=== PATIENT | male | born 1970 | race American Indian/Alaskan Native ===

== ENCOUNTER 2018-08-13 13:30 | Emergency (ER) | payer SELFPAY ==
[2018-08-13 13:35] VITALS: BP 168/101
== END 2018-08-13 16:00 | disposition left against medical advice (07) ==
LOC: ED 13:30
DX: H57.11 Ocular pain, right eye (principal); Z53.21 Procedure and treatment not carried out due to patient leaving prior to being seen by health care provider

== ENCOUNTER 2019-02-02 18:42 | Emergency (ER) | payer OTHER ==
[2019-02-02] MEDS ORDERED: CATAPRES PO ONE (19:25)
[2019-02-02] MEDS ORDERED: CATAPRES ONE (19:26)
[2019-02-02] MEDS ORDERED: BENADRYL IV ONE (20:30)
[2019-02-02] MEDS ORDERED: TORADOL IV ONE (20:30)
[2019-02-02] MEDS ORDERED: REGLAN IV ONE (20:30)
[2019-02-02] MEDS ORDERED: MAGNESIUM SULFATE 2GM/50ML 2 GM/50 ML BAG IV ONE (20:30)
[2019-02-02] MEDS ORDERED: SOLU-Medrol IV ONE (20:31)
--- NOTE | 2019-02-02 20:32 | Emergency Department Report ---
ED General Adult HPI - General Chief complaint: Headache Stated complaint: HEADACHE Time Seen by Provider: 02/02/19 20:11 Source: patient, RN notes reviewed Mode of arrival: Ambulatory Limitations: No Limitations - History of Present Illness Initial comments: This is a 48-year-old gentleman. The patient is not known to this provider previously. He does not have chronic medical conditions that he is aware of. He does not believe his family has any significant past medical history. The patient presents to the emergency room today with a complaint of nontraumatic midline and parietal scalp pain. This pain started yesterday. It is not sudden or thunderclap in nature. It is not maximal intensity at onset. It has been throbbing and waxing and waning for the past day and a half. There is some improvement with [id number] medications. The patient denies fever, neck pain, sore throat, blurry vision, change in vision, viral syndrome, he is not sure if he's ever had chickenpox, and denies neck pain, chest pain, abdominal pain, shortness of breath, extremity weakness, numbness. He denies tinnitus, and he denies vertigo. -: Gradual Location: head Radiation: non-radiation Severity scale (0 -10): 9 Quality: burning, aching Consistency: intermittent Improves with: rest, other (patient reports pain decreases when he turns his head to the opposite side, and avoids placing pressure on the scalp) Worsens with: other (palpation of the scalp and turning his head onto the right side increased pain) - Related Data Previous Rx's Medication Instructions Recorded Last Taken Type Amoxicillin/K Clav Tab [Augmentin 1 tab PO BID #14 tablet 10/16/14 Unknown Rx 875MG] Acetaminophen [Tylenol Arthritis] 650 mg PO Q6HR PRN #30 tablet.er 02/02/19 Unknown Rx Ibuprofen [Motrin] 600 mg PO Q8H PRN #30 tablet 02/02/19 Unknown Rx Allergies Allergy/AdvReac Type Severity Reaction Status Date / Time No Known Allergies Allergy Verified 02/02/19 18:43 ED Review of Systems ROS: Stated complaint: HEADACHE Other details as noted in HPI Constitutional: denies: malaise Eyes: denies: eye discharge ENT: denies: throat pain, dental pain, hearing loss, epistaxis, congestion Respiratory: denies: cough Cardiovascular: denies: chest pain Gastrointestinal: denies: nausea Musculoskeletal: denies: back pain Skin: denies: rash, lesions Neurological: denies: weakness, numbness, paresthesias, confusion ED Past Medical Hx - Past Medical History Hx Hypertension: Yes Hx Arthritis: Yes Additional medical history: Cluster Headache - Surgical History Past Surgical History?: No - Social History Smoking Status: Current Some Day Smoker Substance Use Type: None - Medications Home Medications: Home Medications Medication Instructions Recorded Confirmed Last Taken Type Amoxicillin/K Clav Tab [Augmentin 1 tab PO BID #14 tablet 10/16/14 Unknown Rx 875MG] Acetaminophen [Tylenol Arthritis] 650 mg PO Q6HR PRN #30 tablet.er 02/02/19 Unknown Rx Ibuprofen [Motrin] 600 mg PO Q8H PRN #30 tablet 02/02/19 Unknown Rx ED Physical Exam - General Limitations: No Limitations General appearance: alert, in no apparent distress - Head Head exam: Present: atraumatic, normocephalic, normal inspection, other (the scalp is tender on the right parietal, right middle scalp. There is no redness, pus or streaking, no vesicular lesions noted, no fungal lesions noted.) - Eye Eye exam: Present: normal appearance, PERRL, EOMI, other (visual acuity intact to finger counting, color perception, reading at a close distance). Absent: nystagmus - ENT ENT exam: Present: normal exam, normal orophraynx, mucous membranes moist, TM's normal bilaterally, normal external ear exam, other (there is no mastoid tenderness no vesicles noted.) - Neck Neck exam: Present: normal inspection, full ROM. Absent: tenderness, meningismus - Respiratory Respiratory exam: Present: normal lung sounds bilaterally. Absent: respiratory distress - Cardiovascular Cardiovascular Exam: Present: regular rate, normal rhythm, normal heart sounds. Absent: bradycardia, tachycardia, irregular rhythm, systolic murmur, diastolic murmur, rubs, gallop - GI/Abdominal GI/Abdominal exam: Present: soft. Absent: distended, tenderness, guarding, rebound, rigid, pulsatile mass - Rectal Rectal exam: Present: deferred - Extremities Exam Extremities exam: Present: normal inspection, full ROM, other (2+ pulses noted in the bilateral upper, lower extremities. Compartments soft. No long bony tenderness. The pelvis is stable.). Absent: pedal edema, joint swelling, calf tenderness - Back Exam Back exam: Present: normal inspection, full ROM. Absent: tenderness, CVA tenderness (R), paraspinal tenderness, vertebral tenderness - Neurological Exam Neurological exam: Present: alert, oriented X3, normal gait (there is no pass pointing. There is normal heel to mcdowell. There is negative pronator drift.), other (Extraocular movements intact. Tongue midline. No facial droop. Facial sensation intact to light touch in the V1, V2, V3 distribution bilaterally. 5 and 5 strength in 4 extremities.. Sensation is intact to light touch in 4 extremities.). Absent: motor sensory deficit - Psychiatric Psychiatric exam: Present: normal affect, normal mood - Skin Skin exam: Present: warm, dry, intact, normal color. Absent: rash ED Course Vital Signs 02/02/19 02/02/19 02/02/19 19:15 19:28 20:17 Temperature 98.8 F 98.3 F Pulse Rate 98 H 98 H 66 Respiratory 18 14 Rate Blood Pressure 174/104 174/104 Blood Pressure 172/119 [Left] O2 Sat by Pulse 98 97 Oximetry ED Medical Decision Making - Lab Data Vital Signs 02/02/19 02/02/19 02/02/19 19:15 19:28 20:17 Temperature 98.8 F 98.3 F Pulse Rate 98 H 98 H 66 Respiratory 18 14 Rate Blood Pressure 174/104 174/104 Blood Pressure 172/119 [Left] O2 Sat by Pulse 98 97 Oximetry - Radiology Data Radiology results: report reviewed, image reviewed Noncontrast CT scan of the brain is negative for acute disease. - Medical Decision Making Differential diagnosis, including not limited to: Scalp pain, early cellulitis, scalp zoster, fungal infection, migraine headache, tension headache, cluster headache Assessment and plan: 48-year-old gentleman with a complaint of nontraumatic scalp pain. He has reproducible scalp tenderness. On my physical exam, does not have any obvious redness, pus or streaking. Question early zoster. No obvious vesicular lesions noted. Neurologic exam benign and within normal limits. No red flag historical aspects to suggest stroke, hemorrhagic stroke, meningitis, or subarachnoid hemorrhage. A noncontrast CT scan of the brain was ordered prior to my evaluation, and was negative for acute disease. Patient was given clonidine by the nurse practitioner in triage, prior to my evaluation. The patient has an NIH score of 0. He has a Naheed Coma Scale of 15. Patient counseled that he may have an early scalp process which is not immediately evident on physical exam, but that at the present time, does not appear to represent an emergent, or dangerous, life-threatening condition. His pain was treated with multiple types of headache, pain medication, and he reported improvement in his symptoms. The patient can follow up for his elevated blood pressure. He does not appear to have an emergent medical condition at this time, and is medically suitable for discharge with outpatient follow-up. Critical care attestation.: If time is entered above; I have spent that time in minutes in the direct care of this critically ill patient, excluding procedure time. ED Disposition Clinical Impression: Scalp pain, Elevated blood pressure reading Disposition: TO HOME OR SELFCARE Is pt being admited?: No Does the pt Need Aspirin: No Condition: Good Additional Instructions: Take the pain medications as needed/directed. Apply warm compresses, as often as as needed, alternating with ice packs, as often as as needed, for relief of scalp pain. As we discussed, patient may have an early superficial skin process, such as early skin infection, although process, infection, or shingles which is not immediately obvious on physical exam today. Therefore, I recommend the patient follow up with the physician or medical provider within the next 3- 5 days for repeat evaluation. The patient may follow-up with any of the listed primary care practices, or return to this emergency room for repeat evaluation. Please return to the emergency room right away with new pain, worsened pain, migration of pain, projectile vomiting, change in mental status, confusion, inability to tolerate liquid feeds, new, worsening or different symptoms. Please note that blood pressure was elevated in the emergency room. While this does not label the patient as having a formal diagnosis of hypertension, and the patient should follow-up with a primary care doctor within the next month for recheck of blood pressure. Long-term complications of hypertension and elevated blood pressure do include stroke, heart attack, disability, paralysis, loss of quality of life. Therefore, it is important that the patient follow-up with the medical provider to further evaluate this. Referrals: BEVERLY HUNT MD [Primary Care Provider] - 3-5 Days [facility] [Provider Group] - 3-5 Days [facility] [Provider Group] - 3-5 Days
--- NOTE | 2019-02-02 20:45 | Cat Scan Report ---
PROCEDURE: CT HEAD/BRAIN WO CON TECHNIQUE: Computerized tomography of the head was performed without contrast material. CT DOSE LENGTH PRODUCT: 920.5 mGycm HISTORY: headache COMPARISONS: None . FINDINGS: Skull and scalp: Normal . Paranasal sinuses: Normal . Ventricles and subarachnoid spaces: Normal . Cerebrum: No evidence of hemorrhage, acute infarction or mass . Cerebellum and brainstem: No evidence of hemorrhage, acute infarction or mass . Vasculature: Normal . Other: None . ASPECTS: 10 IMPRESSION: Normal Examination . This document is electronically signed by Richy Su MD., February 02 2019 08:43:27 PM ET
[2019-02-02 21:28] VITALS: BP 154/96
== END 2019-02-02 21:45 | disposition home or self-care (01) ==
LOC: ED 18:42
DX: R51 Headache (principal); I10 Essential (primary) hypertension; M19.90 Unspecified osteoarthritis, unspecified site; F17.200 Nicotine dependence, unspecified, uncomplicated
CPT/HCPCS: 70450; 96365; 96375; 99284; J1200; J1885; J2765; J2930; J3475

== ENCOUNTER 2019-02-05 21:10 | Emergency (ER) | payer OTHER ==
[2019-02-05] MEDS ORDERED: DELTASONE PO ONE (21:18)
--- NOTE | 2019-02-05 21:19 | Emergency Department Report ---
Chief Complaint: Skin Rash Stated Complaint: shingles Time Seen by Provider: 02/05/19 21:18 - HPI History of Present Illness: see here Sat night facial shingles getting worse on acyclovir and itzel mse completed MSE screening note: Focused history and physical exam performed. Due to findings the following was ordered: ED Disposition for MSE Condition: Stable
[2019-02-05 21:57] LABS: Hematocrit 44.1 % (35.5-45.6); Hemoglobin 14.5 gm/dl (11.8-15.2); Mean Corpuscular HGB Conc 33 % (32-34); Mean Corpuscular Volume 88 fl (84-94); Platelet Count 318 K/mm3 (140-440); Red Blood Count 4.99 M/mm3 (3.65-5.03); Red Cell Distribution Width 14.1 % (13.2-15.2)
[2019-02-05 22:17] LABS: Alanine Aminotransferase 42 units/L (7-56); BUN/Creatinine Ratio 18; Blood Urea Nitrogen 18 mg/dL (9-20); Calcium 8.9 mg/dL (8.4-10.2); Hemolysis Index 17
[2019-02-05] MEDS ORDERED: PERCOCET 5/325 PO ONE (23:46)
--- NOTE | 2019-02-05 23:49 | Emergency Department Report ---
ED Rash HPI - HPI Chief Complaint: Skin Rash Stated Complaint: shingles Time Seen by Provider: 02/05/19 21:18 Rash Symptoms: Yes Blistering, Yes Myalgias, No Itching, No Facial Swelling, No Tongue/Oral Swelling, No Breathing Difficulties, No Choking Sensation, No Wheezing/Dyspnea, No Peeling, No Fever, No Lightheaded, No Malaise Severity: severe Other History: 48-year-old -[place] male presents to the emergency room stating that he is unable to sleep secondary to shingles outbreak. Patient reports he was seen on Monday for shingles. Patient reports that he was placed on gabapentin and acyclovir he was given a prescription for tramadol but could not afford. ED Review of Systems ROS: Stated complaint: shingles Other details as noted in HPI Comment: All other systems reviewed and negative ED Past Medical Hx - Past Medical History Previous Medical History?: Yes Hx Hypertension: Yes Hx Arthritis: Yes Additional medical history: Cluster Headache - Surgical History Past Surgical History?: No - Social History Smoking Status: Current Some Day Smoker Substance Use Type: None - Medications Home Medications: Home Medications Medication Instructions Recorded Confirmed Last Taken Type Amoxicillin/K Clav Tab [Augmentin 1 tab PO BID #14 tablet 10/16/14 Unknown Rx 875MG] Acetaminophen [Tylenol Arthritis] 650 mg PO Q6HR PRN #30 tablet.er 02/02/19 Unknown Rx Ibuprofen [Motrin] 600 mg PO Q8H PRN #30 tablet 02/02/19 Unknown Rx amLODIPine [Norvasc] 5 mg PO DAILY #30 tab 02/05/19 Unknown Rx Rash Exam - Exam General: Vital signs noted. No distress. Alert and acting appropriately. HEENT: No Periorbital Edema, No Conjuctival Injection, No Chemosis, No Perioral Edema, No Tongue Edema, No Uvular Edema, No Compromised Airway Lungs: Yes Good Air Exchange (Normal Breath Sounds), No Wheezes, No Ronchi, No Stridor, No Cough, No Labored Respirations, No Retractions, No Use of Accessory Muscles, No Other Abnormal Lung Sounds Skin: Yes Tenderness, Yes Erythema, Yes Other (vesicular papule lesions on the right upper forehead. Involving the eyelid) ED Course Vital Signs 02/05/19 02/05/19 21:23 23:36 Temperature 98.3 F Pulse Rate 62 50 L Respiratory 18 17 Rate Blood Pressure 193/115 165/102 [Right] O2 Sat by Pulse 96 99 Oximetry ED Medical Decision Making - Lab Data Result diagrams: 02/05/19 21:32 02/05/19 21:32 - Medical Decision Making Patient has been evaluated by this provider in [facility]. Patient's given 2 Percocets for pain management. Patient will be able to feel his prescription for tramadol that was given to him on Monday by another provider as this gave patient information on [facility] he reports he is able to afford it using there discount. It was noted the patient had elevated blood pressure in triage. Patient denies any chest pain shortness of breathing headache or nausea no vomiting. Critical care attestation.: If time is entered above; I have spent that time in minutes in the direct care of this critically ill patient, excluding procedure time. ED Disposition Clinical Impression: Elevated blood pressure reading, Shingles rash Disposition: - TO HOME OR SELFCARE Is pt being admited?: No Does the pt Need Aspirin: No Condition: Stable Instructions: Herpes Zoster (ED), Hypertension (ED), DASH Eating Plan (ED), Low Sodium Diet (ED) Additional Instructions: Please take medications as prescribed. Follow up with the primary care provider and rn transfer. Please follow up with rn transfer in the next 2-3 days to prevent blindness to your right eye. As well as follow-up with a primary care provider to follow up with the elevated blood pressure to prevent heart attacks and strokes. Prescriptions: amLODIPine [Norvasc] 5 mg PO DAILY #30 tab Referrals: PRIMARY MD EDD [Primary Care Provider] - 3-5 Days RAMESH FISHMAN MD [Staff Physician] - 3-5 Days [facility] [place] [Provider Group] - 3-5 Days [facility] [Provider Group] - 3-5 Days Forms: Accompanied Note
[2019-02-06] MEDS ORDERED: DELTASONE ONE (00:12)
[2019-02-06 00:16] VITALS: BP 165/105
== END 2019-02-06 00:15 | disposition home or self-care (01) ==
LOC: ED 21:10
DX: R21 Rash and other nonspecific skin eruption (principal); I10 Essential (primary) hypertension; M19.90 Unspecified osteoarthritis, unspecified site; F17.200 Nicotine dependence, unspecified, uncomplicated; Z79.899 Other long term (current) drug therapy
CPT/HCPCS: 36415; 80053; 85027; 99283; J7512

== ENCOUNTER 2019-02-24 13:35 | Emergency (ER) | payer OTHER ==
[2019-02-24] MEDS ORDERED: FUL-GLO OP ONE ×2 (13:49→16:23)
[2019-02-24] MEDS ORDERED: BSS OU ONE (13:49)
--- NOTE | 2019-02-24 13:51 | Emergency Department Report ---
Blank Doc - Documentation Documentation: currently treating shingles to right face and brow and now has red eye with pa in. Last seen eye doctor gary past thrusday but this issue was not present.
--- NOTE | 2019-02-24 17:24 | Emergency Department Report ---
ED Eye Problem HPI - General Chief complaint: Eye Problems Stated complaint: RT EYE PAIN Time Seen by Provider: 02/24/19 13:49 Source: patient Mode of arrival: Ambulatory Limitations: No Limitations - History of Present Illness Initial comments: pt is a 48 yo male who presents to the ED with c/o right eye pain, erythema and photophobia that began 4 days ago. The patient states he has mild blurriness of the right eye and clear drainage. The patient was diagnosed with right upper facial shingles 3 weeks ago and received ganciclovir, pain medications, steroids. The patient states he saw a practice physician two weeks ago and states his exam was normal. The patient denies any eyelash matting or anything getting in the eye. He does not wear contacts. The patient has a hx of HTN and is supposed to be on amlodipine but has not been taking it. - Related Data Previous Rx's Medication Instructions Recorded Last Taken Type Amoxicillin/K Clav Tab [Augmentin 1 tab PO BID #14 tablet 10/16/14 Unknown Rx 875MG] Acetaminophen [Tylenol Arthritis] 650 mg PO Q6HR PRN #30 tablet.er 02/02/19 Unknown Rx Ibuprofen [Motrin] 600 mg PO Q8H PRN #30 tablet 02/02/19 Unknown Rx amLODIPine [Norvasc] 5 mg PO DAILY #30 tab 02/05/19 Unknown Rx Acetaminophen/Codeine [Tylenol 1 tab PO Q6H PRN #10 tab 02/24/19 Unknown Rx /Codeine # 3 tab] Ibuprofen 800 mg PO Q6HR PRN #20 tablet 02/24/19 Unknown Rx Allergies Allergy/AdvReac Type Severity Reaction Status Date / Time No Known Allergies Allergy Verified 02/02/19 18:43 ED Review of Systems ROS: Stated complaint: RT EYE PAIN Other details as noted in HPI Comment: All other systems reviewed and negative ED Past Medical Hx - Past Medical History Previous Medical History?: Yes Hx Hypertension: Yes Hx Arthritis: Yes Additional medical history: Cluster Headache - Surgical History Past Surgical History?: No - Social History Smoking Status: Unknown if ever smoked Substance Use Type: None - Medications Home Medications: Home Medications Medication Instructions Recorded Confirmed Last Taken Type Amoxicillin/K Clav Tab [Augmentin 1 tab PO BID #14 tablet 10/16/14 Unknown Rx 875MG] Acetaminophen [Tylenol Arthritis] 650 mg PO Q6HR PRN #30 tablet.er 02/02/19 Unknown Rx Ibuprofen [Motrin] 600 mg PO Q8H PRN #30 tablet 02/02/19 Unknown Rx amLODIPine [Norvasc] 5 mg PO DAILY #30 tab 02/05/19 Unknown Rx Acetaminophen/Codeine [Tylenol 1 tab PO Q6H PRN #10 tab 02/24/19 Unknown Rx /Codeine # 3 tab] Ibuprofen 800 mg PO Q6HR PRN #20 tablet 02/24/19 Unknown Rx ED Physical Exam - General Limitations: No Limitations General appearance: alert, in no apparent distress - Head Head exam: Present: atraumatic, normocephalic - Eye Eye exam: Present: PERRL, EOMI, conjunctival injection (right), other (mild hazziness of the right pupil, small pupils bilaterally, no uptake on fluroscein stain, no obvious corneal abrasion under mckenzie lamp, pressure in the right eye t aken two times the first reading was 24 the second reading was 21, visual acuity in bilateral eyes 20/15, left eye 20/20, right eye 20/50). Absent: scleral icterus, nystagmus, periorbital swelling, periorbital tenderness - ENT ENT exam: Present: mucous membranes moist - Neurological Exam Neurological exam: Present: alert, oriented X3 - Psychiatric Psychiatric exam: Present: normal affect, normal mood - Skin Skin exam: Present: warm, dry, intact ED Course Vital Signs 02/24/19 13:49 Temperature 97.9 F Pulse Rate 89 Respiratory 18 Rate Blood Pressure 180/119 O2 Sat by Pulse 98 Oximetry - Consultations Consultation #1: 02/24/19 17:27 Dr. Fishman, ER doctor spoke with Dr. Fishman, ophthalmology and discussed pt and examination, he recommended to follow up in office in the morning ED Medical Decision Making - Medical Decision Making pt is a 48 yo male who presents to the ED with c/o right eye pain, erythema and photophobia that began 4 days ago. The patient states he has mild blurriness of the right eye and clear drainage. The patient was diagnosed with right upper facial shingles 3 weeks ago and received ganciclovir, pain medications, steroids. The patient states he saw a practice physician two weeks ago and states his exam was normal. The patient denies any eyelash matting or anything getting in the eye. He does not wear contacts. The patient has a hx of HTN and is supposed to be on amlodipine but has not been taking it. visual acuity is 20/20 left eye, 20/50 right eye, 20/15 bilateral eyes. pressure checked in the right eye with tonometer and was 24 on the first check and 21 on the second check. eye stained with fluoroscein stain no uptake visualized. Dr. Fishman, ER doctor discussed with Dr. Fishman, ophthalmology who will see pt in clinic tomorrow. Will give pt pain medication for his discomfort from post shingles. Advised to follow up with his PCP in the next 2-3 days to discuss post shingles pain and blood pressure. Advised pt to please take his medication once he returns home. Return to the emergency room immediately for any new or worsening symptoms. Critical care attestation.: If time is entered above; I have spent that time in minutes in the direct care of this critically ill patient, excluding procedure time. 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 Please follow up with ophthalmology tomorrow morning (02/25/19). Please follow up with a primary care doctor in the next 2-3 days to discuss your elevated blood pressure. Return to the emergency room immediately for any new or worsening symptoms. Prescriptions: Ibuprofen 800 mg PO Q6HR PRN #20 tablet PRN Reason: Pain, Moderate (4-6) Acetaminophen/Codeine [Tylenol /Codeine # 3 tab] 1 tab PO Q6H PRN #10 tab PRN Reason: Pain , Severe (7-10) [facility]Primary Care Provider[facility] - 2-3 Days RAMESH FISHMAN MD [Staff Physician] - [facility] Time of Disposition: 17:29 Print Language: [place]THER[place] IRISH
[2019-02-24 17:41] VITALS: BP 167/116
== END 2019-02-24 17:41 | disposition home or self-care (01) ==
LOC: ED 13:35
DX: H40.051 Ocular hypertension, right eye (principal); I10 Essential (primary) hypertension; M19.90 Unspecified osteoarthritis, unspecified site
CPT/HCPCS: 99283

== ENCOUNTER 2019-03-14 13:37 | Emergency (ER) | payer OTHER ==
[2019-03-14 14:09] VITALS: BP 156/103
--- NOTE | 2019-03-14 14:09 | Emergency Department Report ---
Blank Doc - Documentation Documentation: 48 y o male presents with shingles to the right forehead area stated he has had this before states recent visit to opthalmalogist was cleared here for the pain and rash PLAn: topical and oral antiviral and pain control [facility] [place]
--- NOTE | 2019-03-14 14:54 | Emergency Department Report ---
ED General Adult HPI - General Chief complaint: Pain General Stated complaint: SHINGLES Time Seen by Provider: 03/14/19 14:05 Source: patient Mode of arrival: Ambulatory Limitations: No Limitations - History of Present Illness Initial comments: Patient is 48 years old male with history of shingle with frequent outbreak. Patient presented with rash to the right forehead. 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 No other complaint at this moment. Patient also stated that he is out of his Norvasc and he asked if he can refill his medication. Patient denied any other symptoms. - Related Data Previous Rx's Medication Instructions Recorded Last Taken Type Amoxicillin/K Clav Tab [Augmentin 1 tab PO BID #14 tablet 10/16/14 Unknown Rx 875MG] Acetaminophen [Tylenol Arthritis] 650 mg PO Q6HR PRN #30 tablet.er 02/02/19 Unknown Rx Ibuprofen [Motrin] 600 mg PO Q8H PRN #30 tablet 02/02/19 Unknown Rx amLODIPine [Norvasc] 5 mg PO DAILY #30 tab 02/05/19 Unknown Rx Acetaminophen/Codeine [Tylenol 1 tab PO Q6H PRN #10 tab 02/24/19 Unknown Rx /Codeine # 3 tab] Ibuprofen [Ibuprofen 800] 800 mg PO Q6HR PRN #20 tablet 02/24/19 Unknown Rx Allergies Allergy/AdvReac Type Severity Reaction Status Date / Time No Known Allergies Allergy Verified 02/02/19 18:43 ED Review of Systems ROS: Stated complaint: SHINGLES Other details as noted in HPI Comment: All other systems reviewed and negative Constitutional: denies: chills, fever Respiratory: denies: cough, shortness of breath, SOB with exertion Cardiovascular: denies: chest pain, palpitations Gastrointestinal: denies: abdominal pain, nausea, vomiting, diarrhea, constipation, hematemesis, melena, hematochezia Musculoskeletal: denies: back pain ED Past Medical Hx - Past Medical History Previous Medical History?: Yes Hx Hypertension: Yes Hx Arthritis: Yes Additional medical history: Cluster Headache - Surgical History Past Surgical History?: No - Social History Smoking Status: Never Smoker - Medications Home Medications: Home Medications Medication Instructions Recorded Confirmed Last Taken Type Amoxicillin/K Clav Tab [Augmentin 1 tab PO BID #14 tablet 10/16/14 Unknown Rx 875MG] Acetaminophen [Tylenol Arthritis] 650 mg PO Q6HR PRN #30 tablet.er 02/02/19 Unknown Rx Ibuprofen [Motrin] 600 mg PO Q8H PRN #30 tablet 02/02/19 Unknown Rx amLODIPine [Norvasc] 5 mg PO DAILY #30 tab 02/05/19 Unknown Rx Acetaminophen/Codeine [Tylenol 1 tab PO Q6H PRN #10 tab 02/24/19 Unknown Rx /Codeine # 3 tab] Ibuprofen [Ibuprofen 800] 800 mg PO Q6HR PRN #20 tablet 02/24/19 Unknown Rx ED Physical Exam - General Limitations: No Limitations General appearance: alert, in no apparent distress - Head Head exam: Present: atraumatic, normocephalic, normal inspection - Eye Eye exam: Present: normal appearance - ENT ENT exam: Present: normal exam, normal orophraynx, mucous membranes moist - Neck Neck exam: Present: normal inspection, full ROM. Absent: tenderness, meningismus, lymphadenopathy, thyromegaly - Respiratory Respiratory exam: Present: normal lung sounds bilaterally - Cardiovascular Cardiovascular Exam: Present: regular rate, normal heart sounds - Neurological Exam Neurological exam: Present: alert, oriented X3 - Skin Skin exam: Present: vesicles (right forehead area) ED Course Vital Signs 03/14/19 14:06 Temperature 98.1 F Pulse Rate 94 H Respiratory 18 Rate Blood Pressure 156/103 O2 Sat by Pulse 99 Oximetry Critical care attestation.: If time is entered above; I have spent that time in minutes in the direct care of this critically ill patient, excluding procedure time. ED Disposition Clinical Impression: Shingles rash, Hypertension Disposition: DC-01 TO HOME OR SELFCARE Is pt being admited?: No Condition: Stable Instructions: Hypertension (ED), Herpes Zoster (ED) Referrals: [facility] [Provider Group] - 3-5 Days
== END 2019-03-14 15:03 | disposition home or self-care (01) ==
LOC: ED 13:37
DX: B02.9 Zoster without complications (principal); I10 Essential (primary) hypertension; M19.90 Unspecified osteoarthritis, unspecified site